=== PATIENT | male | born 1980 | race Caucasian/White ===

== ENCOUNTER → 2017-11-12 | Outpatient (CLI) | payer BC ==
--- NOTE | 2017-11-12 10:10 | Diagnostic Imaging Report ---
TECHNIQUE: Magnetic resonance imaging of the LEFT KNEE was performed WITHOUT injected contrast. HISTORY: Pain, MEDIAL MENISCUS TEAR LEFT KNEE COMPARISON: None available. FINDINGS: LIGAMENTS AND TENDONS: ACL: Intact PCL: Intact Collateral ligaments: Intact Iliotibial band: Unremarkable Popliteal tendon: Intact Extensor mechanism: Thickening of the proximal patellar tendon with focal low-grade intrasubstance partial tear of the proximal tendon. JOINT: Menisci: Medial: Subtle contour irregularity and prominent vasculature at the periphery of the posterior horn. However, no discrete well-defined tear or displaced fragment. Lateral: Intact Articular Cartilage: Medial Compartment: Low-grade erosion and mild fissuring of the weightbearing cartilage, least one of the fissures at the central medial femoral condyle is full-thickness. Lateral Compartment: No focal defect. Patellofemoral Compartment: No focal defect. Joint Fluid: The amount of fluid within the joint is within physiologic limits. BONES: No focal or infiltrative bone marrow replacing abnormality. No acute fracture. SOFT TISSUES: Minimal edema within the adipose tissue adjacent to the superior pole of the patella, deep to the distal quadriceps tendon. A mildly lobulated, multiloculated cystic focus with a tail extending towards the femoral origin of the medial head of the gastrocnemius. IMPRESSION: 1. Minimal medial compartment degenerative changes, including a full-thickness fissure at the central weightbearing cartilage of the medial femoral condyle and fraying of the periphery of the posterior horn of the medial meniscus. 2. Proximal patellar tendinosis including a focal low-grade partial intrasubstance tear. 3. Minimal edema superior patella, which could be seen in setting of a peripatellar friction syndrome. 4. A small ganglion cyst adjacent to the femoral origin of the medial head of the gastrocnemius, this may be an incidental finding. Signed by: Dr. Edin Nelson D.O., M.M.M. on 11/12/2017 10:06 AM
== END ==
LOC: MRI 08:04
PROVIDERS: ATTEND Specialist
DX: S83.222A Peripheral tear of medial meniscus, current injury, left knee, initial encounter (principal); M22.2X2 Patellofemoral disorders, left knee